=== PATIENT | male | born 1980 | race Caucasian/White ===

== ENCOUNTER 2017-09-21 13:22 | Emergency (ER) | payer MEDICAID ==
[~2017-09-21] VITALS: Ht 167.6 cm; Wt 63.0 kg
[~2017-09-21 13:22] MED LIST: AMOX500C2 PO; HYDR-569 PO; IBUP-1051 PO; IBUP-1984 PO; IBUP-814 PO; NO HOME MEDS; PRED20TA PO; TRIA15CR62 TP
[2017-09-21] MEDS ORDERED: azithromycin 250mg tablet PO ONE (14:25)
[2017-09-21] MEDS ORDERED: CefTRIAXone 250MG IM Kit w/LIDOcaine IM ONE (14:25)
[2017-09-21 14:56] VITALS: BP 135/90
[2017-09-21 15:49] LABS: CLARITY,URINE TURBID (Clear); COLOR,URINE YELLOW (Yellow); GLUCOSE, URINE NEGATIVE (Neg); KETONES,URINE NEGATIVE (Neg); LEUKOCYTE ESTERASE ,URINE SMALL (Neg); NITRITES, URINE POSITIVE (Neg); OCCULT BLOOD,URINE LARGE (Neg); PH,URINE 6.5 (4.8-8.0); PROTEIN,URINE >=300 mg/dl (Neg)
[2017-09-21 15:51] LABS: UA COLLECTION TYPE VOIDED
[2017-09-21 15:56] LABS: BACTERIA,URINE 1+ /HPF (Neg); MUCUS STRANDS FEW /LPF (Neg); RBC,URINE 50-100 /HPF (0-2); SQUAMOUS EPITHELIAL CELL,UR NONE SEEN /LPF (FEW); WBC CLUMPS,URINE MODERATE /HPF (NEGATIVE); WBC,URINE TNTC /HPF (0-4)
== END 2017-09-21 15:00 | disposition home or self-care (01) ==
LOC: ER 13:23
DX: N34.2 Other urethritis (principal); F15.10 Other stimulant abuse, uncomplicated; Z79.899 Other long term (current) drug therapy
CPT/HCPCS: 81001; 87077; 87088; 87186; 96372; 99284; J0696

== ENCOUNTER 2018-04-10 06:55 | Emergency (ER) | payer MEDICAID, OTHER ==
[~2018-04-10] VITALS: Ht 165.1 cm; Wt 77.3 kg
[2018-04-10 07:05] VITALS: BP 168/112
[2018-04-10] MEDS ORDERED: CEPH500C5 PO (07:13)
[2018-04-10] MEDS ORDERED: HYDR28CR14 TOP (07:13)
== END 2018-04-10 07:40 | disposition home or self-care (01) ==
LOC: ER 06:56
DX: R21 Rash and other nonspecific skin eruption (principal); F15.90 Other stimulant use, unspecified, uncomplicated; F17.210 Nicotine dependence, cigarettes, uncomplicated; Z79.899 Other long term (current) drug therapy
CPT/HCPCS: 99283

== ENCOUNTER 2018-05-31 16:25 | Emergency (ER) | payer OTHER ==
[~2018-05-31] VITALS: Ht 167.6 cm; Wt 64.7 kg
[~2018-05-31 16:25] MED LIST changes: +CEPH500C5 PO; +HYDR28CR14 TOP
[2018-05-31 16:34] VITALS: BP 162/96
[2018-05-31] MEDS ORDERED: azithromycin 250mg tablet PO ONE (17:05)
[2018-05-31] MEDS ORDERED: CefTRIAXone 250MG inj IM ONE (17:05)
[2018-05-31] MEDS ORDERED: CefTRIAXone 250MG IM Kit w/LIDOcaine IM ONE (17:20)
== END 2018-05-31 17:54 | disposition home or self-care (01) ==
LOC: ER 16:29
DX: A64 Unspecified sexually transmitted disease (principal); F15.90 Other stimulant use, unspecified, uncomplicated; Z79.899 Other long term (current) drug therapy
CPT/HCPCS: 96372; 99283; J0696

== ENCOUNTER → 2018-10-01 | Emergency (ER) | payer MEDICAID, OTHER ==
[~2018-10-01] VITALS: Ht 167.6 cm; Wt 65.0 kg
[~2018-10-01] MED LIST changes: +CefTRIAXone 250MG IM Kit w/LIDOcaine IM ONE; +HYDR-4383 PO; -HYDR-569 PO; +azithromycin 250mg tablet PO ONE; +metroNIDAZOLE 500mg tablet PO ONE
[2018-10-01 17:28] LABS: CLARITY,URINE CLOUDY (Clear); COLOR,URINE YELLOW (Yellow); GLUCOSE, URINE NEGATIVE (Neg); KETONES,URINE NEGATIVE (Neg); LEUKOCYTE ESTERASE ,URINE LARGE (Neg); NITRITES, URINE NEGATIVE (Neg); OCCULT BLOOD,URINE SMALL (Neg); PROTEIN,URINE TRACE mg/dl (Neg)
[2018-10-01 17:29] LABS: UA COLLECTION TYPE VOIDED
[2018-10-01 17:43] LABS: BACTERIA,URINE 1+ /HPF (Neg); MUCUS STRANDS FEW /LPF (Neg); SPERM MODERATE /HPF (NEGATIVE); SQUAMOUS EPITHELIAL CELL,UR FEW /LPF (FEW); WBC,URINE TNTC /HPF (0-4)
== END | disposition home or self-care (01) ==
LOC: ER 16:44
DX: A64 Unspecified sexually transmitted disease (principal); F17.210 Nicotine dependence, cigarettes, uncomplicated; F15.10 Other stimulant abuse, uncomplicated; K59.00 Constipation, unspecified; Z79.899 Other long term (current) drug therapy
CPT/HCPCS: 36415; 81001; 87088; 87491; 87591; 96372; 99283; J0696; J3490

== ENCOUNTER 2018-12-24 22:42 | Emergency (ER) | payer MEDICAID, OTHER ==
[~2018-12-24 22:42] MED LIST changes: -CefTRIAXone 250MG IM Kit w/LIDOcaine IM ONE; -azithromycin 250mg tablet PO ONE; -metroNIDAZOLE 500mg tablet PO ONE
== END 2018-12-25 00:16 | disposition left against medical advice (07) ==
LOC: ER 22:43
DX: M25.572 Pain in left ankle and joints of left foot (principal); Z53.21 Procedure and treatment not carried out due to patient leaving prior to being seen by health care provider; Z79.899 Other long term (current) drug therapy

== ENCOUNTER 2020-12-13 01:03 | Emergency (ER) | payer MEDICAID ==
[~2020-12-13] VITALS: Ht 167.6 cm; Wt 69.1 kg
[~2020-12-13 01:03] MED LIST changes: -CEPH500C5 PO; +PERM60CR4 TOP
[2020-12-13 01:11] VITALS: BP 147/100
[2020-12-13] MEDS ORDERED: CefTRIAXone 1000mg IM Kit (w/lidocaine diluent) IM STA (01:45)
[2020-12-13] MEDS ORDERED: azithromycin 250mg tablet PO ONE (01:45)
[2020-12-13 01:48] LABS: CLARITY,URINE SLIGHTLY CLOUDY (Clear); COLOR,URINE YELLOW (Yellow); GLUCOSE, URINE NEGATIVE (Neg); KETONES,URINE NEGATIVE (Neg); LEUKOCYTE ESTERASE ,URINE SMALL (Neg); NITRITES, URINE NEGATIVE (Neg); OCCULT BLOOD,URINE TRACE-INTACT (Neg); PROTEIN,URINE NEGATIVE (Neg)
[2020-12-13 01:57] LABS: UA COLLECTION TYPE CLN CATCH MIDSTREAM
[2020-12-13 01:59] LABS: RBC,URINE 0-2 /HPF (0-2); WBC,URINE 50-100 /HPF (0-4)
[2020-12-13 02:01] LABS: BACTERIA,URINE FEW /HPF (Neg); MUCUS STRANDS FEW /LPF (Neg); SQUAMOUS EPITHELIAL CELL,UR NONE SEEN /LPF (FEW)
== END 2020-12-13 02:25 | disposition home or self-care (01) ==
LOC: ER 01:03
DX: Z20.2 Contact with and (suspected) exposure to infections with a predominantly sexual mode of transmission (principal); R30.0 Dysuria; F15.90 Other stimulant use, unspecified, uncomplicated; Z72.89 Other problems related to lifestyle; Z79.899 Other long term (current) drug therapy
CPT/HCPCS: 36415; 81001; 86592; 87088; 87491; 87591; 96372; 99283; J0696; 87077; 87186

== ENCOUNTER 2021-01-09 09:50 | Emergency (ER) | payer MEDICAID ==
[~2021-01-09] VITALS: Ht 167.6 cm; Wt 68.3 kg
[2021-01-09 09:56] VITALS: BP 131/87
[2021-01-09] MEDS ORDERED: CefTRIAXone 250MG inj IM ONE (12:35)
[2021-01-09] MEDS ORDERED: azithromycin 250mg tablet PO ONE (12:35)
[2021-01-09] MEDS ORDERED: CefTRIAXone 1000mg IM Kit (w/lidocaine diluent) IM ONE (12:55)
[2021-01-09] MEDS ORDERED: DOXY100C76 PO (12:55)
[2021-01-09 13:13] LABS: CLARITY,URINE SLIGHTLY CLOUDY (Clear); COLOR,URINE YELLOW (Yellow); GLUCOSE, URINE NEGATIVE (Neg); KETONES,URINE TRACE mg/dl (Neg); LEUKOCYTE ESTERASE ,URINE MODERATE (Neg); NITRITES, URINE NEGATIVE (Neg); OCCULT BLOOD,URINE TRACE-INTACT (Neg); PROTEIN,URINE TRACE mg/dl (Neg); UA COLLECTION TYPE VOIDED; UROBILINOGEN,URINE 0.2 E.U/dL (0.2-1.0)
[2021-01-09 13:19] LABS: BACTERIA,URINE 2+ /HPF (Neg); MUCUS STRANDS FEW /LPF (Neg); RBC,URINE 0-2 /HPF (0-2); SQUAMOUS EPITHELIAL CELL,UR FEW /LPF (FEW); WBC,URINE TNTC /HPF (0-4)
[2021-01-09 13:20] LABS: CAL OXALATE CRYSTALS 1+ /HPF (NEGATIVE); TRANSITIONAL EPI CELLS,URINE FEW /HPF
== END 2021-01-09 13:10 | disposition home or self-care (01) ==
LOC: ER 09:51
DX: Z20.2 Contact with and (suspected) exposure to infections with a predominantly sexual mode of transmission (principal); R30.0 Dysuria; F15.90 Other stimulant use, unspecified, uncomplicated; Z72.89 Other problems related to lifestyle; Z79.2 Long term (current) use of antibiotics; Z79.899 Other long term (current) drug therapy
CPT/HCPCS: 36415; 81001; 87088; 87186; 87491; 87591; 96372; 99283; J0696; 87077

== ENCOUNTER 2021-03-03 04:49 | Emergency (ER) | payer MEDICAID ==
[~2021-03-03] VITALS: Ht 167.6 cm; Wt 70.9 kg
[2021-03-03 04:55] VITALS: BP 123/84
[2021-03-03] MEDS ORDERED: TETanus/Pertussis (Acell)/Diphther VAC/PF (Tdap-Adult) 0.5ml syringe IMVAC ONE (06:15)
[2021-03-03] MEDS ORDERED: LIDOcaine 1% W/epiNEPHrine 1:200,000 10ml vial IJ ONE (06:15)
[2021-03-03] MEDS ORDERED: acetaminophen 325mg tablet PO ONE (07:45)
== END 2021-03-03 08:23 | disposition home or self-care (01) ==
LOC: ER 04:50
DX: S06.0X0A Concussion without loss of consciousness, initial encounter (principal); S02.5XXA Fracture of tooth (traumatic), initial encounter for closed fracture; S01.511A Laceration without foreign body of lip, initial encounter; F15.90 Other stimulant use, unspecified, uncomplicated; Z72.89 Other problems related to lifestyle; Z79.899 Other long term (current) drug therapy; V27.4XXA Motorcycle driver injured in collision with fixed or stationary object in traffic accident, initial encounter; Y93.89 Activity, other specified; Y92.488 Other paved roadways as the place of occurrence of the external cause; Y99.8 Other external cause status
CPT/HCPCS: 12011; 12052; 70450; 70486; 90471; 90715; 99285

== ENCOUNTER 2021-05-01 15:07 | Emergency (ER) | payer MEDICAID ==
[~2021-05-01] VITALS: Ht 167.6 cm; Wt 68.0 kg
[2021-05-01] MEDS ORDERED: proparacaine 0.5% ophthalmic drops 15ml EACHEYE ONE (17:50)
[2021-05-01] MEDS ORDERED: timolol 0.5% ophthalmic solution 5ml bottle LEFTEYE SCH (18:25)
[2021-05-01] MEDS ORDERED: pilocarpine 2% ophthalmic drops 15ml LEFTEYE ONE (18:30)
[2021-05-01] MEDS ORDERED: acetaZOLAMIDE IV 500mg inj IV ONE (18:30)
[2021-05-01] MEDS: brimonidine 0.2% 5 ML ophthalmic drops LEFTEYE SCH ×2 (19:17→21:08)
[2021-05-01] MEDS ORDERED: APRACLONIDINE 0.5% LEFTEYE SCH (21:00)
[2021-05-01] MEDS ORDERED: ketorolac trometh. 30mg/ml inj. IV ONE (21:20)
[2021-05-01] MEDS ORDERED: diphenhydrAMINE 25mg capsule PO ONE (21:20)
[2021-05-01] MEDS ORDERED: metoclopramide 5 mg/ml inj IV ONE (21:20)
[2021-05-01 23:32] VITALS: BP 131/100
== END 2021-05-01 23:33 | disposition home or self-care (01) ==
LOC: ER 15:08
DX: H40.20X0 Unspecified primary angle-closure glaucoma, stage unspecified (principal); F15.10 Other stimulant abuse, uncomplicated; Z79.899 Other long term (current) drug therapy
CPT/HCPCS: 70450; 96374; 96375; 99284; J1120; J1885; J2765; Q0163

== ENCOUNTER 2021-05-14 07:20 | Emergency (ER) | payer MEDICAID | END 2021-05-14 08:00 | disposition left against medical advice (07) | LOC: ER 07:21 | DX: Z53.21 Procedure and treatment not carried out due to patient leaving prior to being seen by health care provider (principal) ==

== ENCOUNTER 2021-05-18 01:45 | Emergency (ER) | payer MEDICAID ==
[~2021-05-18] VITALS: Ht 167.6 cm; Wt 63.6 kg
[2021-05-18 01:58] VITALS: BP 138/92
[2021-05-18] MEDS ORDERED: SULF1TAB49 PO (03:23)
[2021-05-18] MEDS ORDERED: CEPH-585 PO (03:23)
[2021-05-18] MEDS ORDERED: cephalexin 500mg capsule PO ONE (03:25)
== END 2021-05-18 03:47 | disposition home or self-care (01) ==
LOC: ER 01:45
DX: L03.317 Cellulitis of buttock (principal); F15.90 Other stimulant use, unspecified, uncomplicated; Z72.89 Other problems related to lifestyle; Z79.2 Long term (current) use of antibiotics; Z79.899 Other long term (current) drug therapy
CPT/HCPCS: 99283

== ENCOUNTER 2021-06-13 00:50 | Emergency (ER) | payer MEDICAID ==
[~2021-06-13] VITALS: Ht 167.6 cm; Wt 63.6 kg
[~2021-06-13 00:50] MED LIST changes: +CEPH-585 PO
--- NOTE | 2021-06-13 01:21 | NUR ---
PT WAS IN RESTROOM FOR 20 MIN UPON ARRIVAL. PT CURSING AT STAFF WHO WENT TO KNOCK ON DOOR ASKING IF HE WAS OK.
[2021-06-13 03:59] LABS: CLARITY,URINE SLIGHTLY CLOUDY (Clear); COLOR,URINE YELLOW (Yellow); GLUCOSE, URINE NEGATIVE (Neg); KETONES,URINE NEGATIVE (Neg); LEUKOCYTE ESTERASE ,URINE NEGATIVE (Neg); NITRITES, URINE NEGATIVE (Neg); OCCULT BLOOD,URINE NEGATIVE (Neg); PH,URINE 7.5 (4.8-8.0); PROTEIN,URINE NEGATIVE (Neg); UA COLLECTION TYPE URINAL
[2021-06-13 04:00] LABS: SQUAMOUS EPITHELIAL CELL,UR FEW /LPF (FEW)
[2021-06-13 04:01] LABS: MUCUS STRANDS MODERATE /LPF (Neg)
[2021-06-13 04:03] LABS: WBC CLUMPS,URINE FEW /HPF (NEGATIVE)
[2021-06-13 04:04] LABS: RBC,URINE 0-2 /HPF (0-2)
[2021-06-13 04:05] LABS: AMORPHOUS PHOSPHATES 1+; BACTERIA,URINE FEW /HPF (Neg)
[2021-06-13] MEDS ORDERED: CEPH-585 PO (04:31)
[2021-06-13] MEDS ORDERED: DOXY-411 PO (04:33)
[2021-06-13] MEDS ORDERED: CefTRIAXone 500MG IM Kit w/LIDOcaine IM ONE (04:35)
[2021-06-13] MEDS ORDERED: CefTRIAXone 1000mg IM Kit (w/lidocaine diluent) IM ONE (04:40)
--- NOTE | 2021-06-13 04:56 | NUR ---
pt difficult to arouse with verbal stimuli. sternal rubbed pt to arouse, pt took right handed swing at staff member. pt agitated during discharge process and escorted to ambulance bay by security.
[2021-06-13 04:59] VITALS: BP 115/83
== END 2021-06-13 05:01 | disposition home or self-care (01) ==
LOC: ER 00:51
DX: N39.0 Urinary tract infection, site not specified (principal); R32 Unspecified urinary incontinence; F15.90 Other stimulant use, unspecified, uncomplicated; Z72.89 Other problems related to lifestyle; Z79.2 Long term (current) use of antibiotics; Z79.899 Other long term (current) drug therapy
CPT/HCPCS: 81001; 96372; 99283; J0696

== ENCOUNTER 2021-07-26 00:46 | Emergency (ER) | payer MEDICAID ==
[~2021-07-26] VITALS: Ht 167.6 cm; Wt 63.6 kg
[2021-07-26] MEDS ORDERED: timolol 0.5% ophthalmic solution 5ml bottle LEFTEYE STA (01:29)
[2021-07-26] MEDS ORDERED: APRACLONIDINE 0.5% LEFTEYE STA (01:34)
[2021-07-26] MEDS ORDERED: acetaZOLAMIDE 250mg tablet PO ONE (01:35)
[2021-07-26] MEDS ORDERED: brimonidine 0.2% 5 ML ophthalmic drops EACHEYE STA (01:41)
[2021-07-26] MEDS ORDERED: acetaZOLAMIDE 500mg capsule.SA PO ONE (01:50)
[2021-07-26] MEDS ORDERED: pilocarpine 2% ophthalmic drops 15ml LEFTEYE ONE (02:40)
[2021-07-26 07:45] VITALS: BP 127/95
== END 2021-07-26 07:47 | disposition home or self-care (01) ==
LOC: ER 00:46
DX: H40.212 Acute angle-closure glaucoma, left eye (principal); H57.12 Ocular pain, left eye; F15.90 Other stimulant use, unspecified, uncomplicated; Z72.89 Other problems related to lifestyle; Z79.2 Long term (current) use of antibiotics; Z79.899 Other long term (current) drug therapy
CPT/HCPCS: 99284

== ENCOUNTER 2021-09-29 10:19 | Emergency (ER) | payer MEDICAID ==
[~2021-09-29] VITALS: Ht 167.6 cm; Wt 70.5 kg
[2021-09-29] MEDS ORDERED: HYDROcodone/acetaminophen 10/325mg tab PO ONE (14:10)
[2021-09-29 14:32] VITALS: BP 126/88
[2021-09-29] MEDS ORDERED: IBUP-1985 PO (14:37)
== END 2021-09-29 15:39 | disposition home or self-care (01) ==
LOC: ER 10:20
DX: S43.101A Unspecified dislocation of right acromioclavicular joint, initial encounter (principal); F17.200 Nicotine dependence, unspecified, uncomplicated; F15.90 Other stimulant use, unspecified, uncomplicated; Z72.89 Other problems related to lifestyle; Z79.2 Long term (current) use of antibiotics; Z87.81 Personal history of (healed) traumatic fracture; Z79.899 Other long term (current) drug therapy; V19.3XXA Pedal cyclist (driver) (passenger) injured in unspecified nontraffic accident, initial encounter; Y93.89 Activity, other specified; Y92.89 Other specified places as the place of occurrence of the external cause; Y99.8 Other external cause status
CPT/HCPCS: 29105; 73030; 99283

== ENCOUNTER 2021-12-05 12:29 | Emergency (ER) | payer MEDICAID ==
[~2021-12-05] VITALS: Ht 167.6 cm; Wt 59.1 kg
[~2021-12-05 12:29] MED LIST changes: +IBUP-1985 PO
[2021-12-05 12:52] VITALS: BP 113/75
[2021-12-05 13:38] LABS: BASOPHILS % (AUTO) 0.4 % (0-1); EOSINOPHILS # (AUTO) 0.2 X10'3 (0-0.9); EOSINOPHILS % (AUTO) 3.9 % (0-6); HEMATOCRIT 47.5 % (42.0-52.0); HEMOGLOBIN 16.3 g/dl (14.0-17.9); LYMPHOCYTES # (AUTO) 0.8 X10'3 (1.1-4.8); MEAN CORPUSCULAR HEMOGLOBIN 31.4 PG (27.0-31.0); MEAN CORPUSCULAR HGB CONC 34.4 g/dL (33.0-36.5); MEAN CORPUSCULAR VOLUME 91.1 FL (78-98); MEAN PLATELET VOLUME 8.3 FL (7.4-10.4); MONOCYTES # (AUTO) 0.5 X10'3 (0-0.9); MONOCYTES % (AUTO) 8.9 % (2-12); NEUTROPHILS # (AUTO) 4.4 X10'3 (1.8-7.7); NEUTROPHILS % (AUTO) 72.8 % (42-75); PLATELET COUNT 190 X10'3 (140-440); RED BLOOD COUNT 5.21 X10'6 (4.70-6.10); RED CELL DISTRIBUTION WIDTH 13.1 % (11.5-14.5)
[2021-12-05 13:51] LABS: ALANINE AMINOTRANSFERASE 29 U/L (12-78); ALBUMIN 3.1 G/DL (3.4-5.0); ALBUMIN/GLOBULIN RATIO 0.9 (1.1-1.5); ALKALINE PHOSPHATASE 49 IU/L (46-116); ANION GAP 6 (8-16); ASPARTATE AMINO TRANSFERASE 20 U/L (10-37); BILIRUBIN,TOTAL 0.5 MG/DL (0.1-1.0); BLOOD UREA NITROGEN 16 MG/DL (7-18); BUN/CREATININE RATIO 22.5 (5.4-32.0); CALCIUM 8.2 MG/DL (8.5-10.1); CHLORIDE 105 MMOL/L (99-107); CREATININE 0.71 MG/DL (0.60-1.10); ETHANOL < 0.010 GM/DL (0.0-0.010); GLUCOSE 114 MG/DL (70-104); LIPASE < 50 U/L (73-393); SODIUM 138 MMOL/L (135-145); TOTAL CARBON DIOXIDE 27.3 MMOL/L (24-32); TOTAL PROTEIN 6.6 G/DL (6.4-8.2); eGFR > 90 ML/MIN
--- NOTE | 2021-12-05 14:07 | NUR ---
Breaking primary RN Pt given urine specimen cup, and need for UA discussed with pt.
[2021-12-05] MEDS ORDERED: ondansetron 4mg rapidly disintigrating tab PO ONE (14:30)
[2021-12-05] MEDS ORDERED: LIDOcaine Viscous 15ml cup MM PRN (14:55)
[2021-12-05] MEDS ORDERED: magnesium hydroxide 30ml (MOM) UD suspension PO ONE (14:55)
[2021-12-05] MEDS ORDERED: MAGN400O6 PO (15:42)
[2021-12-05] MEDS ORDERED: PANT-47 PO (15:42)
[2021-12-05 16:02] LABS: CLARITY,URINE SLIGHTLY CLOUDY (Clear); COLOR,URINE YELLOW (Yellow); GLUCOSE, URINE NEGATIVE (Neg); KETONES,URINE NEGATIVE (Neg); LEUKOCYTE ESTERASE ,URINE NEGATIVE (Neg); NITRITES, URINE NEGATIVE (Neg); OCCULT BLOOD,URINE NEGATIVE (Neg); PH,URINE 5.5 (4.8-8.0); PROTEIN,URINE NEGATIVE (Neg)
[2021-12-05 16:03] LABS: UA COLLECTION TYPE CLN CATCH MIDSTREAM
[2021-12-05 16:13] LABS: MUCUS STRANDS MANY /LPF (Neg); SQUAMOUS EPITHELIAL CELL,UR FEW /LPF (FEW)
[2021-12-05 16:14] LABS: BACTERIA,URINE FEW /HPF (Neg); WBC,URINE 0-4 /HPF (0-4)
== END 2021-12-05 17:30 | disposition home or self-care (01) ==
LOC: ER 12:32
DX: K29.00 Acute gastritis without bleeding (principal); F15.90 Other stimulant use, unspecified, uncomplicated; Z72.89 Other problems related to lifestyle; Z79.2 Long term (current) use of antibiotics; Z79.899 Other long term (current) drug therapy
CPT/HCPCS: 36415; 76700; 80053; 80320; 81001; 83690; 85025; 99284

== ENCOUNTER 2022-01-15 21:11 | Emergency (ER) | payer MEDICAID ==
[~2022-01-15] VITALS: Ht 167.6 cm; Wt 6.8 kg
[~2022-01-15 21:11] MED LIST changes: +MAGN400O6 PO; +PANT-47 PO
[2022-01-15 21:16] VITALS: BP 135/82
== END 2022-01-15 23:07 | disposition left against medical advice (07) ==
LOC: ER 21:12
DX: G89.29 Other chronic pain (principal); M19.042 Primary osteoarthritis, left hand; M19.041 Primary osteoarthritis, right hand; R53.1 Weakness; F15.90 Other stimulant use, unspecified, uncomplicated; Z72.89 Other problems related to lifestyle; Z79.2 Long term (current) use of antibiotics; Z79.899 Other long term (current) drug therapy
CPT/HCPCS: 99282; 99283

== ENCOUNTER 2022-03-03 22:24 | Emergency (ER) | payer MEDICAID ==
[~2022-03-03] VITALS: Ht 167.6 cm; Wt 63.6 kg
[2022-03-04] MEDS ORDERED: proparacaine 0.5% ophthalmic drops 15ml EACHEYE ONE (02:35)
[2022-03-04] MEDS ORDERED: timolol 0.5% ophthalmic solution 5ml bottle LEFTEYE STA (03:04)
[2022-03-04] MEDS ORDERED: LORazepam 1 MG tablet PO ONE (03:05)
[2022-03-04] MEDS ORDERED: HYDROcodone/acetaminophen 10/325mg tab PO ONE (03:05)
[2022-03-04] MEDS ORDERED: naproxen 500mg tablet PO ONE (03:05)
[2022-03-04] MEDS ORDERED: pilocarpine 2% ophthalmic drops 15ml LEFTEYE ONE (03:05)
[2022-03-04] MEDS ORDERED: brimonidine 0.2% 5 ML ophthalmic drops LEFTEYE SCH (03:05)
[2022-03-04] MEDS ORDERED: acetaZOLAMIDE 250mg tablet PO ONE ×2 (03:05→05:10)
[2022-03-04] MEDS ORDERED: APRACLONIDINE 0.5% LEFTEYE SCH (03:10)
[2022-03-04] MEDS ORDERED: acetaZOLAMIDE 500mg capsule.SA PO ONE ×2 (03:30→05:20)
--- NOTE | 2022-03-04 03:35 | NUR ---
PT CONTINUOUSLY REMOVING VITAL MONITORING EQUIPMENT DESPITE RN EDUCATION ABOUT LEAVING THEM ON SO THAT HE CAN BE MONITORED.
--- NOTE | 2022-03-04 05:06 | NUR ---
MD CHECKED PT'S EYE PRESSURE AND VERBALLY ORDERED ANOTHER ROUND OF EYE DROPS. FULL EYE DROP CONTAINERS IN PATIENT'S ROOM. RN GAVE 1 DROP BRIMONIDINE 2% SOLUTION, 2 DROPS PROPARACAINE 0.5%, AND 2 DROPS TIMOLOL 0.5% 2 DROPS PILOCARPINE 2% PER MD VERBAL ORDER. PT STATES HE FELT SOME RELIEF WITH FIRST DOSE BUT STILL FEELS PRESSURE. MD WILL REEVALUATE.
--- NOTE | 2022-03-04 05:44 | NUR ---
MD RECHECKED EYE PRESSURE. PT STATED HIS EYE FEELS BETTER. MD VERBAL ORDER TO REPEAT EYE DROPS. RN GAVE 1 DROP BRIMONIDINE 2% SOLUTION, AND 2 DROPS TIMOLOL 0.5% 2 DROPS PILOCARPINE 2% PER MD VERBAL ORDER.
[2022-03-04 06:38] VITALS: BP 116/71
== END 2022-03-04 06:40 | disposition home or self-care (01) ==
LOC: ER 22:25
DX: H40.9 Unspecified glaucoma (principal); R51.9 Headache, unspecified; H54.7 Unspecified visual loss; F15.90 Other stimulant use, unspecified, uncomplicated; Z87.19 Personal history of other diseases of the digestive system; Z87.440 Personal history of urinary (tract) infections; Z87.81 Personal history of (healed) traumatic fracture; Z72.89 Other problems related to lifestyle; Z59.00 Homelessness unspecified; Z79.2 Long term (current) use of antibiotics; Z79.899 Other long term (current) drug therapy
CPT/HCPCS: 99285

== ENCOUNTER 2022-05-31 09:58 | Emergency (ER) | payer MEDICAID ==
[~2022-05-31] VITALS: Ht 167.6 cm; Wt 63.6 kg
[~2022-05-31 09:58] MED LIST changes: -CEPH-585 PO
[2022-05-31 10:40] VITALS: BP 137/90
[2022-05-31 12:33] LABS: CLARITY,URINE CLEAR (Clear); COLOR,URINE YELLOW (Yellow); GLUCOSE, URINE NEGATIVE (Neg); KETONES,URINE NEGATIVE (Neg); LEUKOCYTE ESTERASE ,URINE NEGATIVE (Neg); NITRITES, URINE NEGATIVE (Neg); OCCULT BLOOD,URINE NEGATIVE (Neg); PROTEIN,URINE NEGATIVE (Neg); UROBILINOGEN,URINE 0.2 E.U/dL (0.2-1.0)
[2022-05-31 12:44] LABS: UA COLLECTION TYPE CLN CATCH MIDSTREAM
[2022-05-31] MEDS ORDERED: CefTRIAXone 1000mg IM Kit (w/lidocaine diluent) IM STA (14:03)
[2022-05-31] MEDS ORDERED: azithromycin 250mg tablet PO ONE (14:05)
== END 2022-05-31 15:09 | disposition home or self-care (01) ==
LOC: ER 09:59
DX: R30.0 Dysuria (principal); R35.0 Frequency of micturition; R10.9 Unspecified abdominal pain; F17.200 Nicotine dependence, unspecified, uncomplicated; F15.90 Other stimulant use, unspecified, uncomplicated; Z72.89 Other problems related to lifestyle; Z59.00 Homelessness unspecified; Z87.440 Personal history of urinary (tract) infections; Z87.19 Personal history of other diseases of the digestive system; Z79.2 Long term (current) use of antibiotics; Z79.899 Other long term (current) drug therapy
CPT/HCPCS: 36415; 81003; 87491; 87591; 96372; 99283; J0696

== ENCOUNTER 2022-06-27 18:30 | Emergency (ER) | payer MEDICAID ==
[~2022-06-27] VITALS: Ht 167.6 cm; Wt 63.6 kg
[2022-06-27 19:13] VITALS: BP 117/85
[2022-06-27] MEDS ORDERED: TIMO5DRO32 LEFTEYE (21:04)
[2022-06-27] MEDS ORDERED: TOBR5DRO2 RIGHTEYE (21:04)
[2022-06-27] MEDS ORDERED: acetaZOLAMIDE 500mg capsule.SA PO ONE (21:05)
== END 2022-06-27 22:11 | disposition home or self-care (01) ==
LOC: ER 18:31
DX: H40.20X0 Unspecified primary angle-closure glaucoma, stage unspecified (principal); F15.10 Other stimulant abuse, uncomplicated; Z87.81 Personal history of (healed) traumatic fracture; Z59.00 Homelessness unspecified; Z79.899 Other long term (current) drug therapy; Z79.1 Long term (current) use of non-steroidal anti-inflammatories (NSAID); Z79.2 Long term (current) use of antibiotics
CPT/HCPCS: 99283

== ENCOUNTER 2022-12-05 08:08 | Emergency (ER) | payer MEDICAID ==
[~2022-12-05] VITALS: Ht 167.6 cm; Wt 60.0 kg
[~2022-12-05 08:08] MED LIST changes: +TIMO5DRO32 LEFTEYE; +TOBR5DRO2 RIGHTEYE
[2022-12-05 08:48] LABS: BASOPHILS # (AUTO) 0.1 X10'3 (0-0.2); BASOPHILS % (AUTO) 0.8 % (0-1); EOSINOPHILS # (AUTO) 0.4 X10'3 (0-0.9); EOSINOPHILS % (AUTO) 4.7 % (0-6); HEMATOCRIT 51.5 % (42.0-52.0); HEMOGLOBIN 17.6 g/dl (14.0-17.9); LYMPHOCYTES # (AUTO) 1.3 X10'3 (1.1-4.8); LYMPHOCYTES % (AUTO) 14.3 % (21-51); MEAN CORPUSCULAR HGB CONC 34.2 g/dL (33.0-36.5); MEAN CORPUSCULAR VOLUME 90.7 FL (78-98); MEAN PLATELET VOLUME 7.7 FL (7.4-10.4); MONOCYTES # (AUTO) 0.6 X10'3 (0-0.9); MONOCYTES % (AUTO) 6.5 % (2-12); NEUTROPHILS # (AUTO) 6.4 X10'3 (1.8-7.7); NEUTROPHILS % (AUTO) 73.7 % (42-75); PLATELET COUNT 317 X10'3 (140-440); RED BLOOD COUNT 5.68 X10'6 (4.70-6.10); RED CELL DISTRIBUTION WIDTH 12.6 % (11.5-14.5); WHITE BLOOD COUNT 8.7 X10'3 (4.5-11.0)
[2022-12-05 08:57] LABS: ALANINE AMINOTRANSFERASE 28 U/L (12-78); ALBUMIN 3.8 G/DL (3.4-5.0); ALKALINE PHOSPHATASE 60 IU/L (46-116); ANION GAP 5 (8-16); ASPARTATE AMINO TRANSFERASE 20 U/L (10-37); BILIRUBIN,TOTAL 0.5 MG/DL (0.1-1.0); BLOOD UREA NITROGEN 13 MG/DL (7-18); BUN/CREATININE RATIO 14.3 (10.0-20.0); CALCIUM 9.5 MG/DL (8.5-10.1); CHLORIDE 104 MMOL/L (99-107); CREATININE 0.91 MG/DL (0.60-1.10); GLUCOSE 125 MG/DL (70-104); LIPASE < 50 U/L (73-393); SODIUM 140 MMOL/L (135-145); TOTAL CARBON DIOXIDE 30.8 MMOL/L (24-32); TOTAL PROTEIN 7.5 G/DL (6.4-8.2); eGFR > 90 ML/MIN
[2022-12-05] MEDS ORDERED: ketorolac trometh. 30mg/ml inj. IV ONE (09:25)
[2022-12-05] MEDS ORDERED: loperamide 2mg capsule PO ONE (09:25)
[2022-12-05] MEDS ORDERED: normal saline 1000ML IV soln IVB ONE (09:25)
[2022-12-05] MEDS ORDERED: metoclopramide 5 mg/ml inj IV ONE (09:25)
--- NOTE | 2022-12-05 11:02 | NUR ---
PT PROVIDED FOOD AND NOTED TO HAVE WEATHER APPROPRIATE CLOTHING FOR D/C
[2022-12-05] MEDS ORDERED: DICY10CA14 PO (11:08)
[2022-12-05] MEDS ORDERED: ONDA4TAB12 PO (11:08)
[2022-12-05] MEDS ORDERED: DIPH-186 PO (11:08)
[2022-12-05 11:59] VITALS: BP 128/74
== END 2022-12-05 12:00 | disposition home or self-care (01) ==
LOC: ER 08:12
DX: R11.2 Nausea with vomiting, unspecified (principal); R19.7 Diarrhea, unspecified; R10.84 Generalized abdominal pain; F15.90 Other stimulant use, unspecified, uncomplicated; Z72.89 Other problems related to lifestyle; Z59.00 Homelessness unspecified; Z79.899 Other long term (current) drug therapy
CPT/HCPCS: 36415; 80053; 83690; 85025; 96361; 96374; 96375; 99284; J1885; J2765; J7030

== ENCOUNTER 2022-12-18 22:14 | Emergency (ER) | payer MEDICAID ==
[~2022-12-18] VITALS: Ht 167.6 cm; Wt 63.6 kg
[~2022-12-18 22:14] MED LIST changes: +DICY10CA14 PO; +DIPH-186 PO; +ONDA4TAB12 PO
[2022-12-18 22:21] VITALS: BP 143/113
== END 2022-12-18 23:49 | disposition home or self-care (01) ==
LOC: ER 22:15
DX: S60.221A Contusion of right hand, initial encounter (principal); F15.10 Other stimulant abuse, uncomplicated; Y99.8 Other external cause status; X58.XXXA Exposure to other specified factors, initial encounter; Y93.89 Activity, other specified; Y92.89 Other specified places as the place of occurrence of the external cause; Z87.81 Personal history of (healed) traumatic fracture; Z88.1 Allergy status to other antibiotic agents; Z79.899 Other long term (current) drug therapy; Z79.1 Long term (current) use of non-steroidal anti-inflammatories (NSAID); Z79.2 Long term (current) use of antibiotics
CPT/HCPCS: 73130; 99283

== ENCOUNTER 2023-04-01 14:32 | Emergency (ER) | payer MEDICAID ==
[~2023-04-01] VITALS: Ht 167.6 cm; Wt 67.0 kg
[~2023-04-01 14:32] MED LIST changes: +DICY-19 PO; -DICY10CA14 PO; -TIMO5DRO32 LEFTEYE; +TIMO5DRO44 LEFTEYE
[2023-04-01 15:34] VITALS: BP 143/97
[2023-04-01] MEDS ORDERED: triamcinolone acetonide 40mg/ml inj IM ONE (16:55)
[2023-04-01] MEDS ORDERED: TRIA15CR61 TOP (16:58)
== END 2023-04-01 17:20 | disposition home or self-care (01) ==
LOC: ER 14:33
DX: L23.7 Allergic contact dermatitis due to plants, except food (principal); F15.90 Other stimulant use, unspecified, uncomplicated; Z79.1 Long term (current) use of non-steroidal anti-inflammatories (NSAID); Z79.899 Other long term (current) drug therapy; Z59.00 Homelessness unspecified
CPT/HCPCS: 96372; 99283; J3301

== ENCOUNTER 2023-05-19 13:08 | Emergency (ER) | payer MEDICAID ==
[~2023-05-19] VITALS: Ht 167.6 cm; Wt 72.7 kg
[2023-05-19 13:18] VITALS: BP 127/86; PULSE 68; RESP 18; TEMP 99.3; O2SAT 97
[2023-05-19] MEDS ORDERED: SULF1TAB49 PO (14:43)
[2023-05-19] MEDS ORDERED: NAPR-56 PO (14:43)
[2023-05-19] MEDS ORDERED: CEPH-585 PO (14:43)
== END 2023-05-19 15:20 | disposition home or self-care (01) ==
LOC: ER 13:08
DX: L02.31 Cutaneous abscess of buttock (principal); L03.317 Cellulitis of buttock; F19.90 Other psychoactive substance use, unspecified, uncomplicated; Z56.0 Unemployment, unspecified; Z72.89 Other problems related to lifestyle; Z87.440 Personal history of urinary (tract) infections; Z87.81 Personal history of (healed) traumatic fracture; Z88.1 Allergy status to other antibiotic agents; Z79.2 Long term (current) use of antibiotics; Z79.899 Other long term (current) drug therapy
CPT/HCPCS: 99283

== ENCOUNTER 2023-08-25 09:35 | Emergency (ER) | payer MEDICAID ==
[~2023-08-25] VITALS: Ht 167.6 cm; Wt 72.7 kg
[~2023-08-25 09:35] MED LIST changes: +CEPH-585 PO
[2023-08-25 09:58] VITALS: BP 125/84; PULSE 81; RESP 18; TEMP 98.5; O2SAT 98
[2023-08-25] MEDS ORDERED: LIDOcaine 1% 30ml preserv. free vial IJ ONE (10:05)
[2023-08-25] MEDS ORDERED: SULF1TAB49 PO (10:45)
== END 2023-08-25 11:14 | disposition home or self-care (01) ==
LOC: ER 09:36
DX: L02.31 Cutaneous abscess of buttock (principal); F15.90 Other stimulant use, unspecified, uncomplicated; Z72.89 Other problems related to lifestyle; Z59.00 Homelessness unspecified; Z88.1 Allergy status to other antibiotic agents; Z79.899 Other long term (current) drug therapy
CPT/HCPCS: 10060; 99283; A6449

== ENCOUNTER 2023-09-13 11:44 | Emergency (ER) | payer MEDICAID ==
[~2023-09-13] VITALS: Ht 167.6 cm; Wt 71.4 kg
[2023-09-13] MEDS ORDERED: TETanus/Pertussis (Acell)/Diphther VAC/PF (Tdap-Adult) 0.5ml syringe IMVAC ONE (11:55)
[2023-09-13] MEDS ORDERED: LIDOCAINE 1%/EPI 1:100,000 inj. 10 ML multi-dose vial IJ ONE (11:55)
[2023-09-13] MEDS ORDERED: ketorolac trometh. 30mg/ml inj. IM ONE (13:05)
[2023-09-13] MEDS ORDERED: IBUP-1986 PO (13:06)
[2023-09-13] MEDS ORDERED: CEPH-585 PO (13:06)
[2023-09-13 13:18] VITALS: BP 150/86; PULSE 78; RESP 17; TEMP 98; O2SAT 98
== END 2023-09-13 13:20 | disposition home or self-care (01) ==
LOC: ER 11:45
DX: S61.210A Laceration without foreign body of right index finger without damage to nail, initial encounter (principal); F15.90 Other stimulant use, unspecified, uncomplicated; Z59.00 Homelessness unspecified; Z79.899 Other long term (current) drug therapy; Z88.1 Allergy status to other antibiotic agents; W27.0XXA Contact with workbench tool, initial encounter; Y93.89 Activity, other specified; Y92.89 Other specified places as the place of occurrence of the external cause; Y99.8 Other external cause status
CPT/HCPCS: 12001; 73140; 90471; 90715; 96372; 99284; J1885; J7030; A6258; A6449

== ENCOUNTER 2023-10-14 13:12 | Emergency (ER) | payer MEDICAID ==
[~2023-10-14] VITALS: Ht 167.6 cm; Wt 72.7 kg
[~2023-10-14 13:12] MED LIST changes: +IBUP-1986 PO
[2023-10-14 13:35] VITALS: BP 128/83; PULSE 73; RESP 18; TEMP 97.8; O2SAT 98
[2023-10-14] MEDS ORDERED: ceFAZolin 1gm IM kit IM ONE (15:30)
[2023-10-14] MEDS ORDERED: ibuprofen tablet 400 MG TABLET PO ONE (15:35)
[2023-10-14] MEDS ORDERED: bacitracin 15gm ointment TP ONE (16:25)
[2023-10-14] MEDS ORDERED: CEPH-585 PO (16:34)
[2023-10-14] MEDS ORDERED: IBUP-1984 PO (16:34)
== END 2023-10-14 17:24 | disposition home or self-care (01) ==
LOC: ER 13:13
DX: S62.395G Other fracture of fourth metacarpal bone, left hand, subsequent encounter for fracture with delayed healing (principal); S62.39 Other fracture of other metacarpal bone; X58.XXXS Exposure to other specified factors, sequela; F15.10 Other stimulant abuse, uncomplicated; Z87.81 Personal history of (healed) traumatic fracture; Z88.0 Allergy status to penicillin; Z79.899 Other long term (current) drug therapy; Z79.1 Long term (current) use of non-steroidal anti-inflammatories (NSAID)
CPT/HCPCS: 73130; 96372; 99283; J0690; J7030; A6258

== ENCOUNTER 2023-11-16 13:10 | Emergency (ER) | payer MEDICAID ==
[~2023-11-16] VITALS: Ht 167.6 cm; Wt 70.0 kg
[2023-11-16 13:53] LABS: BILIRUBIN,URINE NEGATIVE (Neg); CLARITY,URINE CLEAR (Clear); COLOR,URINE YELLOW (Yellow); GLUCOSE, URINE NEGATIVE (Neg); KETONES,URINE NEGATIVE (Neg); LEUKOCYTE ESTERASE ,URINE NEGATIVE (Neg); NITRITES, URINE NEGATIVE (Neg); OCCULT BLOOD,URINE MODERATE (Neg); PROTEIN,URINE NEGATIVE (Neg); UROBILINOGEN,URINE 0.2 E.U/dL (0.2-1.0)
[2023-11-16 14:08] LABS: UA COLLECTION TYPE CLN CATCH MIDSTREAM
[2023-11-16 14:09] LABS: BACTERIA,URINE FEW /HPF (Neg); MUCUS STRANDS FEW /LPF (Neg); RBC,URINE 0-2 /HPF (0-2); SQUAMOUS EPITHELIAL CELL,UR FEW /LPF (FEW)
[2023-11-16 14:18] LABS: BASOPHILS % (AUTO) 0.3 % (0-1); EOSINOPHILS % (AUTO) 0.1 % (0-6); HEMATOCRIT 51.1 % (42.0-52.0); HEMOGLOBIN 17.2 g/dl (14.0-17.9); LYMPHOCYTES # (AUTO) 0.7 X10'3 (1.1-4.8); LYMPHOCYTES % (AUTO) 5.9 % (21-51); MEAN CORPUSCULAR HEMOGLOBIN 30.5 PG (27.0-31.0); MEAN CORPUSCULAR HGB CONC 33.6 g/dL (33.0-36.5); MEAN CORPUSCULAR VOLUME 90.9 FL (78-98); MEAN PLATELET VOLUME 8.4 FL (7.4-10.4); MONOCYTES # (AUTO) 0.9 X10'3 (0-0.9); MONOCYTES % (AUTO) 8.3 % (2-12); NEUTROPHILS # (AUTO) 9.7 X10'3 (1.8-7.7); NEUTROPHILS % (AUTO) 85.4 % (42-75); PLATELET COUNT 189 X10'3 (140-440); RED BLOOD COUNT 5.62 X10'6 (4.70-6.10); RED CELL DISTRIBUTION WIDTH 13.3 % (11.5-14.5); WHITE BLOOD COUNT 11.4 X10'3 (4.5-11.0)
[2023-11-16 14:29] LABS: ANION GAP 10 (8-16); BLOOD UREA NITROGEN 14 MG/DL (7-18); BUN/CREATININE RATIO 12.8 (10.0-20.0); CALCIUM 8.6 MG/DL (8.5-10.1); CHLORIDE 100 MMOL/L (99-107); CREATININE 1.09 MG/DL (0.60-1.10); GLUCOSE 111 MG/DL (70-104); LIPASE 21 U/L (16-77); POTASSIUM 4.3 MMOL/L (3.5-5.1); SODIUM 140 MMOL/L (135-145); TOTAL CARBON DIOXIDE 29.7 MMOL/L (24-32); eCRCL 78 ML/MIN; eGFR 73 ML/MIN
[2023-11-16] MEDS: acetaminophen 325mg tablet PO ONE (16:01)
[2023-11-16] MEDS ORDERED: DOXY-356 PO (17:26)
[2023-11-16 17:36] VITALS: BP 118/89; PULSE 90; RESP 16; TEMP 98.8; O2SAT 99
[2023-11-16] MEDS: CefTRIAXone 250MG IM Kit w/LIDOcaine IM ONE (17:36)
[2023-11-16] MEDS: azithromycin 250mg tablet PO ONE (17:36)
== END 2023-11-16 17:38 | disposition home or self-care (01) ==
LOC: ER 13:10
DX: N39.0 Urinary tract infection, site not specified (principal); F10.90 Alcohol use, unspecified, uncomplicated; F15.90 Other stimulant use, unspecified, uncomplicated; Z20.822 Contact with and (suspected) exposure to COVID-19; Z59.00 Homelessness unspecified; Z88.8 Allergy status to other drugs, medicaments and biological substances; Z79.899 Other long term (current) drug therapy; Z79.2 Long term (current) use of antibiotics
CPT/HCPCS: 36415; 80048; 81001; 83690; 85025; 87088; 87502; 87503; 87811; 99283

== ENCOUNTER 2024-05-19 15:37 | Emergency (ER) | payer MEDICAID, OTHER ==
[~2024-05-19] VITALS: Ht 167.6 cm; Wt 75.2 kg
[~2024-05-19 15:37] MED LIST changes: +ONDA-243 PO; -ONDA4TAB12 PO
[2024-05-19 15:59] VITALS: TEMP 97.8
[2024-05-19] MEDS: CefTRIAXone 1000mg IM Kit (w/lidocaine diluent) IM ONE (17:30)
[2024-05-19] MEDS: ketorolac trometh 30MG/ML vial 30 MG/ML VIAL IM ONE (17:30)
[2024-05-19] MEDS ORDERED: SULF1TAB49 PO (17:40)
[2024-05-19 17:42] VITALS: BP 126/68; PULSE 76; RESP 14; O2SAT 98
== END 2024-05-19 17:45 | disposition home or self-care (01) ==
LOC: ER 15:38
DX: N49.2 Inflammatory disorders of scrotum (principal); F10.90 Alcohol use, unspecified, uncomplicated; F15.90 Other stimulant use, unspecified, uncomplicated; Z88.1 Allergy status to other antibiotic agents; Z79.1 Long term (current) use of non-steroidal anti-inflammatories (NSAID); Z79.52 Long term (current) use of systemic steroids; Z79.51 Long term (current) use of inhaled steroids; Z79.899 Other long term (current) drug therapy; Z59.00 Homelessness unspecified
CPT/HCPCS: 96372; 99284; J0696; J1885

== ENCOUNTER 2024-10-20 07:44 | Emergency (ER) | payer OTHER, MEDICAID ==
[~2024-10-20] VITALS: Ht 167.6 cm; Wt 79.5 kg
[~2024-10-20 07:44] MED LIST changes: -CEPH-585 PO
[2024-10-20 07:58] VITALS: BP 151/81; PULSE 101; RESP 18; TEMP 98.9; O2SAT 95
== END 2024-10-20 08:35 | disposition left against medical advice (07) ==
LOC: ER 07:44
DX: R05.9 Cough, unspecified (principal); R50.9 Fever, unspecified; J00 Acute nasopharyngitis [common cold]; Z88.0 Allergy status to penicillin; Z53.21 Procedure and treatment not carried out due to patient leaving prior to being seen by health care provider
CPT/HCPCS: 87502; 87503

== ENCOUNTER 2025-06-04 11:13 | Emergency (ER) | payer OTHER, MEDICAID ==
[~2025-06-04] VITALS: Ht 167.6 cm; Wt 80.0 kg
[~2025-06-04 11:13] MED LIST changes: -IBUP-1985 PO; +IBUP600T52 PO; +MELO-102 PO
[2025-06-04 11:18] VITALS: BP 133/96; PULSE 65; RESP 18; O2SAT 98
--- NOTE | 2025-06-04 11:52 | Physician Documentation ---
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 He states he experiences these headaches intermittently ever since. He has not had a headache in quite some time but thinks this headache started a few days ago has been taking Motrin and Tylenol without any relief. He does admit he has glasses that he was fitted with to wear when this started several years ago which are helpful but he has not been wearing them as they "making him breakout." He denies photophobia, nausea, vomiting, drainage/discharge from eye, pain inside his eye, pain with extraocular movements. Medication Reconciliation Allergies: Coded Allergies: amoxicillin (Verified Allergy, Unknown, HIVES, 05/04/25) Scheduled Amoxicillin Trihydrate* (Amoxicillin*), 500 MG PO TID Dicyclomine HCl (Dicyclomine HCl), 1 CAP PO Q8H Diphenoxylate HCl/Atropine (Lomotil 2.5-0.025 mg Tablet), 1 TAB PO Q6H Hydrocortisone (hydrocortisone 1% cream), 1 APPLIC TOP Q12H Ibuprofen (Motrin), 600 MG PO Q8H Ibuprofen (Ibuprofen), 1 TAB PO Q8H Ibuprofen (Ibuprofen), 1 TAB PO Q8H Ibuprofen* (Motrin*), 800 MG PO BID Magnesium Hydroxide (Milk of Magnesia), 5 ML PO Q12H Meloxicam (Meloxicam), 1 TAB PO DAILY Pantoprazole Sodium (PROTONIX tablet), 1 TAB PO DAILY Permethrin (Permethrin), 1 APPLIC TOP ONCE Prednisone* (Prednisone*), 40 MG PO DAILY Timolol (Betimol), 1 DROP LEFTEYE Q12H Tobramycin Sulfate/Dexameth (Tobradex Eye Drops), 1 DROP RIGHTEYE Q6H Triamcinolone Acetonide Cream* (Kenalog Cream 0.025%*), 1 APPLIC TP BID Scheduled PRN Hydrocodone/Acetaminophen ([place] 5-325 Tablet), 1 TAB PO TID PRN PRN for severe pain Ibuprofen* (Motrin*), 800 MG PO TID PRN ONDANSETRON ODT 4mg tablet (Ondansetron Odt), 1 TABLET PO Q6H PRN for nausea/vomiting Miscellaneous Medications Home Med List (No Home Medications), (Reported) Past Medical History Past Medical History: Glaucoma, Gastritis, UTI, Extremity Fracture, *INFECTIOUS DZ* Past Surgical History: noncontributory Alcohol Use: Heavy Drug Use: methamphetamine Lives with: Spouse, Other Lives In: Homeless, Other Occupation: employed Review of Systems All Other Systems at this time: Reviewed and Negative Physical Exam Vital Signs: Temperature: 98.1, Source: Temporal, Heart Rate: 65, Respiratory Rate: 18, BP: 133/96, Pulse Oximetry: 98, Weight: 80.000 Oxygen Flow Rate: 0 Physical Exam General Appearance: Alert, WD/WN. NAD. HEENT: NCAT, PERRL, EOMI. Bulbar conjunctiva clear no increased injection, no increased tearing, no photophobia bilaterally. Fundoscopic exam left eye: no gross hemorrhages or excudes Neck: Supple, trachea midline. Cardiovascular: RRR. No m/r/g. Lungs: CTAB. Breathing unlabored Extremities: Normal inspection. No edema. Skin: Warm/dry, normal color Neurological: Alert and oriented x4, normal gait. Psychiatric: Affect congruent with mood. Procedures Eye Procedure Alcaine Drops Administered: No Procedure Note LEFT EYE PRESSURE WAS EVALUATED WITH THE TONOMETER AND I OBTAINED 5 READINGS WHICH WHERE: 3, 4, 4, 3, 7 Progress Results/Orders Results/Orders Vital Signs 06/04/25 11:18 Temp 98.1 Pulse 65 Resp 18 B/P (MAP) 133/96 Pulse Ox 98 O2 Flow Rate 0 Medical Decision Making Eye Diff. Dx: Considerations: Include: [place], Conjuctivits-allergic, Conjuctivitis-bacterial, Conjuctivits-chlamydial, Conjuctivitis-viral, Corneal abrasion, Corneal laceration, Corneal ulceration, Foreign body-conjuctiva, Foreign body-corneal, Foreign body-intraocular, Foreign body-lid, Glaucoma, Globe rupture, Hordeolum, Iritis, Orbital cellulitis, Periobital cellulitis, Retinal artery occulsion, Retinal vein occlusion, Rust ring, Subconjunctival hem, Ultraviolet keratitis, Uveitis, Vitreous hemorrhage Departure Time of Disposition: 11:49 Disposition: 01 HOME / SELF CARE / HOMELESS Impression: Primary Impression: Headache Qualified Codes: R51.9 - Headache, unspecified Additional Impression: Eye strain, left Condition: Stable Discharge Instructions: General Discharge Instructions Additional Instructions: Your eye pressures in your left eye were great, your pain is consistent with headache likely from ongoing eye strain since you do not have very good vision out of that left eye since the trauma occurred several years ago. I do recommend that you try to wear your glasses more regularly as this will help with ice strain and this should significantly help with headaches. If you have any concerning symptoms such as worse headache of your life, pain inside your eyeball with extraocular movements (when you look to the left right up or down) or any other concerning symptoms return to ER immediately. Referrals: NO PRIMARY CARE PROVIDER (PCP) Prescriptions Ibuprofen (Ibuprofen) 800 Mg Tablet 1 TAB PO Q8H for pain for 10 Days, #30 TAB 0 Refills Prov: KAMILLE BROOKS 06/04/25 Acetaminophen (Tylenol 8 Hour) 650 Mg Tablet.er 1 TAB PO TID PRN PRN for pain for 30 Days, #90 TAB 0 Refills NEEDED FOR PAIN Prov: KAMILLE BROOKS 06/04/25 Education Educated: Patient Educated regarding: diagnosis, treatment, need for follow up Signature Scribe Signature: x Attestation: KAMILLE Terry Jun 04, 2025 11:52
[2025-06-04] MEDS ORDERED: ACET-3174 PO (11:53)
[2025-06-04] MEDS ORDERED: IBUP-1986 PO (11:53)
[2025-06-04 11:57] VITALS: TEMP 98.1
== END 2025-06-04 11:58 | disposition home or self-care (01) ==
LOC: ER 11:13
DX: R51.9 Headache, unspecified (principal); H53.10 Unspecified subjective visual disturbances; F15.90 Other stimulant use, unspecified, uncomplicated; Z88.1 Allergy status to other antibiotic agents; Z87.19 Personal history of other diseases of the digestive system; Z79.899 Other long term (current) drug therapy; Z59.00 Homelessness unspecified; Z87.440 Personal history of urinary (tract) infections
CPT/HCPCS: 99282; 99283; A6410